=== PATIENT | female | born 1975 | race Caucasian/White ===

== ENCOUNTER 2018-09-09 16:06 | Emergency (ER) | payer SELFPAY ==
--- NOTE | 2018-09-09 16:10 | ED.ABDPAIN ---
HPI - Abdominal Pain <ATA Herrera - Last Filed: 09/09/18 22:26> General Chief Complaint: Abdominal Pain Stated Complaint: left side x7 days Time Seen by Provider: 09/09/18 16:09 Source: patient Mode of arrival: ambulatory Limitations: no limitations History of Present Illness HPI narrative: 43-year-old female healthy female that is a nonsmoker here for complaint of pain to her left flank area over the past several days. She feels that she has been having increased urinary frequency. She denies any dysuria. She denies any abnormal vaginal discharge or bleeding. Last menstrual period was approximately July 10. she denies any trauma to the left flank. increased pain with motion of the lower back. No fevers no chills. No nausea or vomiting. She also reports having generalized lower abdomen /pelvic pain over the past last several days as well. Related Data Allergies Allergy/AdvReac Type Severity Reaction Status Date / Time No Known Drug Allergies Allergy Verified 09/09/18 16:18 Review of Systems <ATA Herrera - Last Filed: 09/09/18 22:26> Constitutional Denies chills, Denies fever(s), Denies lethargy and Denies weakness Eyes Denies change in vision, Denies eye discharge, Denies irritation and Denies loss of vision ENT Ears, Nose, Mouth, and Throat: Denies change in voice, Denies neck pain and Denies sore throat Cardiovascular Denies chest pain, Denies irregular heart rhythm, Denies lightheadedness, Denies palpitations and Denies orthopnea Gastrointestinal Comments: abdominal/pelvic discomfort Genitourinary Comments: Flank pain. Musculoskeletal Denies neck pain Integumentary/Breasts Denies pruritus, Denies erythema, Denies rash and Denies wounds Neurologic Denies confusion, Denies loss of vision and Denies weakness Psychiatric Denies anxiety, Denies confusion, Denies depression, Denies homicidal ideation and Denies suicidal ideation Endocrine Denies palpitations Hematologic/Lymphatic Denies easy bruising Exam <ATA Herrera - Last Filed: 09/09/18 22:26> Initial Vital Signs Initial Vital Signs: Vital Signs Temperature 98.8 F 09/09/18 16:18 Pulse Rate 84 09/09/18 16:18 Respiratory Rate 16 09/09/18 16:18 Blood Pressure 122/83 09/09/18 16:18 Pulse Oximetry 99 09/09/18 16:18 Const General: cooperative and well developed Nutritional Appearance: well nourished Orientation: alert, awake, oriented x3 and not confused HENFL Mouth: oral mucosae normal and moist mucous membranes Eyes Conjunctivae: conjunctivae normal Sclera: sclerae normal Pupils: PERRL EOM: EOM intact bilaterally Resp Effort & Inspection: normal respiratory effort, able to speak in complete sentences, no respiratory distress and no use of accessory muscles Auscultation: clear to auscultation bilaterally, no rales, no rhonchi and no wheezes Cardio Rate: regular rate Rhythm: regular rhythm Heart Sounds: no click, no gallops, no murmurs and no rubs Back/Spine/Pelvis Thoracic/Lumbar Spine: paraspinal tenderness Skin General: no rashes or lesions noted, No jaundice and No petechiae Neuro General: alert, oriented x3, gait normal and no focal motor deficits Speech: speech normal <Chadd Cardoso DO - Last Filed: 09/10/18 07:35> Initial Vital Signs Initial Vital Signs: Vital Signs Temperature 98.8 F 09/09/18 16:18 Pulse Rate 84 09/09/18 16:18 Respiratory Rate 16 09/09/18 16:18 Blood Pressure 122/83 09/09/18 16:18 Pulse Oximetry 99 09/09/18 16:18 Course <ATA Herrera - Last Filed: 09/09/18 22:26> Orders Ordered: Discontinued Medications Sodium Chloride (Normal Saline 0.9%) 1,000 mls @ 1,000 mls/hr IV BOLUS ONE Stop: 09/09/18 17:36 Last Infusion: 09/09/18 19:17 Dose: 0 mls/hr Admin: 09/09/18 17:19 Dose: 1,000 mls/hr Vital Signs - 8 hr 09/09/18 16:18 09/09/18 18:04 09/09/18 19:41 Temperature 98.8 F 98.8 F Pulse Rate 84 84 76 Respiratory Rate 16 16 16 Blood Pressure 122/83 122/83 Blood Pressure [Right Arm] 133/91 H Pulse Oximetry 99 99 98 <Chadd Cardoso DO - Last Filed: 09/10/18 07:35> Orders Ordered: Discontinued Medications Sodium Chloride (Normal Saline 0.9%) 1,000 mls @ 1,000 mls/hr IV BOLUS ONE Stop: 09/09/18 17:36 Last Infusion: 09/09/18 19:17 Dose: 0 mls/hr Admin: 09/09/18 17:19 Dose: 1,000 mls/hr Vital Signs - 8 hr 09/09/18 16:18 09/09/18 18:04 09/09/18 19:41 Temperature 98.8 F 98.8 F Pulse Rate 84 84 76 Respiratory Rate 16 16 16 Blood Pressure 122/83 122/83 Blood Pressure [Right Arm] 133/91 H Pulse Oximetry 99 99 98 MDM - Abdominal Pain <ATA Herrera - Last Filed: 09/09/18 22:26> Lab Data Result diagrams: 09/09/18 17:05 09/09/18 17:05 Lab Results 09/09/18 09/09/18 09/09/18 Range/Units 17:05 17:05 17:45 WBC 8.7 (4.5-11.0) X10^3/uL RBC 4.28 (4.0-5.2) X10^6/uL Hgb 13.3 (12.0-16.0) g/dL Hct 39.8 (36-46) % MCV 93.0 (80-100) fL MCH 31.0 (26-34) PG MCHC 33.4 (30-36) % RDW 13.0 (11.6-14.8) % Plt Count 215 (150-400) X10^3/uL Neut % (Auto) 68.7 (50-75) % Lymph % (Auto) 22.8 L (25-40) % [place] % (Auto) 7.4 (3-14) % Eos % (Auto) 0.6 L (2-4) % Baso % (Auto) 0.5 (0-2) % Neut # (Auto) 6000 H (4847-3003) /uL Sodium 138 (137-145) mmol/L Potassium 4.0 (3.4-5.1) mmol/L Chloride 103 (98-107) mmol/L Carbon Dioxide 23 (22-32) mmol/L BUN 5 L (7-17) mg/dL Creatinine 0.60 (0.52-1.04) mg/dL Estimated GFR > 60.0 (>60) mL/min BUN/Creatinine Ratio 8.3 (6-22) Glucose 86 (70-100) mg/dL Calcium 9.0 (8.4-10.2) mg/dL Total Bilirubin 1.4 H (0.2-1.3) mg/dL AST 14 (14-36) IU/L ALT 19 (9-52) IU/L Alkaline Phosphatase 37 L (38-126) U/L Total Protein 7.0 (6.3-8.2) g/dL Albumin 4.3 (3.5-5.0) g/dL Globulin 2.7 (1.7-4.1) g/dL Albumin/Globulin Ratio 1.6 (1.0-2.8) Lipase 37 (23-300) U/L Urine RBC 0-1/hpf (0-5/HPF) Urine WBC 0-1/hpf (0-5/HPF) Ur Squamous Epith Cells 5-10 /hpf H Urine Bacteria Few (2-10) H (None) Urine Mucus 1+ H (Negative) Ur Culture Indicated? Cult not indicated Micro UA Comment Not Reportable Point of care testing: Point of Care Testing Test Results Positive Urine Dip Bedside Urine Glucose Negative Bedside Urine Bilirubin - Negative Bedside Urine Ketone ++ 40 Urine Specific [place] 1.025 Bedside Urine Occult Blood - Negative Bedside Urine pH 6.0 Bedside Urine Protein +/- 15 Bedside Urine Urobilinogen - Negative Bedside Urine Nitrite - Negative Bedside Urine Leukocytes - Negative Esterase MDM Narrative Medical decision making narrative: urinalysis was negative for urinary tract infection. Urinalysis was positive for . She is 4 para 1. CBC and Chem panel were obtained were unremarkable. Lipase was normal. pain into the left flank presents as a paraspinal tenderness to the lumbar region. Suspect that her generalized discomfort to the lower abdomen and pelvic region may be due to ligament pain secondary to the . Will hold on imaging as of this time. she is referred to [facility] for further evaluation and treatment. use [id number] Tylenol as needed for any discomfort. For any worsening symptoms return to the emergency room. <Chadd Cardoso DO - Last Filed: 09/10/18 07:35> Lab Data Lab Results 09/09/18 09/09/18 09/09/18 Range/Units 17:05 17:05 17:45 WBC 8.7 (4.5-11.0) X10^3/uL RBC 4.28 (4.0-5.2) X10^6/uL Hgb 13.3 (12.0-16.0) g/dL Hct 39.8 (36-46) % MCV 93.0 (80-100) fL MCH 31.0 (26-34) PG MCHC 33.4 (30-36) % RDW 13.0 (11.6-14.8) % Plt Count 215 (150-400) X10^3/uL Neut % (Auto) 68.7 (50-75) % Lymph % (Auto) 22.8 L (25-40) % Archer % (Auto) 7.4 (3-14) % Eos % (Auto) 0.6 L (2-4) % Baso % (Auto) 0.5 (0-2) % Neut # (Auto) 6000 H (2416-2081) /uL Sodium 138 (137-145) mmol/L Potassium 4.0 (3.4-5.1) mmol/L Chloride 103 (98-107) mmol/L Carbon Dioxide 23 (22-32) mmol/L BUN 5 L (7-17) mg/dL Creatinine 0.60 (0.52-1.04) mg/dL Estimated GFR > 60.0 (>60) mL/min BUN/Creatinine Ratio 8.3 (6-22) Glucose 86 (70-100) mg/dL Calcium 9.0 (8.4-10.2) mg/dL Total Bilirubin 1.4 H (0.2-1.3) mg/dL AST 14 (14-36) IU/L ALT 19 (9-52) IU/L Alkaline Phosphatase 37 L (38-126) U/L Total Protein 7.0 (6.3-8.2) g/dL Albumin 4.3 (3.5-5.0) g/dL Globulin 2.7 (1.7-4.1) g/dL Albumin/Globulin Ratio 1.6 (1.0-2.8) Lipase 37 (23-300) U/L Urine RBC 0-1/hpf (0-5/HPF) Urine WBC 0-1/hpf (0-5/HPF) Ur Squamous Epith Cells 5-10 /hpf H Urine Bacteria Few (2-10) H (None) Urine Mucus 1+ H (Negative) Ur Culture Indicated? Cult not indicated Micro UA Comment Not Reportable Point of care testing: Point of Care Testing Test Results Positive Urine Dip Bedside Urine Glucose Negative Bedside Urine Bilirubin - Negative Bedside Urine Ketone ++ 40 Urine Specific [place] 1.025 Bedside Urine Occult Blood - Negative Bedside Urine pH 6.0 Bedside Urine Protein +/- 15 Bedside Urine Urobilinogen - Negative Bedside Urine Nitrite - Negative Bedside Urine Leukocytes - Negative Esterase Discharge Plan Departure Patient Disposition: Home Clinical Impression: Back pain Discharge Date/Time: 09/09/18 20:01 Interventions: ED Discharge Assessment Last Done: 09/09/18 19:59 Instructions: Medications and , DI for Abdominal Pain -- Early Activity Restrictions/Additional Instructions: laboratory results today were unremarkable. Urinalysis was negative for urinary tract infection. Urinalysis does indicate positive for . Pain into her left back area presents as muscle skeletal pain. Gentle range of motion to the painful areas to help keep muscles loose. Use [id number] Tylenol as needed for any discomfort. Rest area. Follow up with OBGYN call the number at number provided to schedule follow-up appointment he in the next few days. generalized pelvic pain presents as ligament pain secondary to the . Again use [id number] Tylenol as needed for any discomfort. For any worsening symptoms return emergency room. Referrals: Mely Calloway MD [Physician] - <Chadd Cardoso DO - Last Filed: 09/10/18 07:35> [facility]: I was immediately available in the department for consultation. Documentation has been reviewed. I agree with assessment and plan.
[2018-09-09 16:18] VITALS: BP 122/83; PULSE 84; RESP 16; TEMP 37.1; O2SAT 99; BMI 22.7
[2018-09-09 17:13] LABS: Add Manual Diff / Slide Review NO; Basophils Percent Auto 0.5 % (0-2); Eosinophils Percent Auto 0.6 % (2-4); Hematocrit 39.8 % (36-46); Hemoglobin 13.3 g/dL (12.0-16.0); Lymphocytes Percent Auto 22.8 % (25-40); Mean Corpuscular HGB Conc 33.4 % (30-36); Monocytes Percent Auto 7.4 % (3-14); Neutrophils Absolute Auto 6000 /uL (3000-5900); Neutrophils Percent Auto 68.7 % (50-75); Platelet Count 215 X10^3/uL (150-400); Red Blood Cell Count 4.28 X10^6/uL (4.0-5.2); White Blood Cell Count 8.7 X10^3/uL (4.5-11.0)
[2018-09-09] MEDS: SODIUM CHLORIDE 0.9% 1,000 ML 1000 ML IV (17:19)
[2018-09-09 17:25] LABS: Alanine Aminotransferase 19 IU/L (9-52); Albumin 4.3 g/dL (3.5-5.0); Albumin Globulin Ratio 1.6 (1.0-2.8); Alkaline Phosphatase 37 U/L (38-126); Aspartate Aminotransferase 14 IU/L (14-36); BUN Creatinine Ratio 8.3 (6-22); Bilirubin Total 1.4 mg/dL (0.2-1.3); Blood Urea Nitrogen 5 mg/dL (7-17); Carbon Dioxide 23 mmol/L (22-32); Chloride 103 mmol/L (98-107); Estimated Glomerular Filt Rate > 60.0 mL/min (>60); Globulin 2.7 g/dL (1.7-4.1); Glucose 86 mg/dL (70-100); HEMOLYSIS < 15 (0-50); Lipase 37 U/L (23-300); Sodium 138 mmol/L (137-145)
[2018-09-09 18:04] VITALS: BP 122/83; PULSE 84; RESP 16; TEMP 37.1; O2SAT 99; BMI 22.7
[2018-09-09 18:09] LABS: Bacteria Urine Few (2-10); Culture Indicated Urine Cult Not Indicated; RBC Urine 0-1/HPF (0-5/HPF); Squamous Epithelial Cell Urine 5-10 /HPF; WBC Urine 0-1/HPF (0-5/HPF)
[2018-09-09 18:15] LABS: Mucus Urine 1+ (Negative)
[2018-09-09 19:41] VITALS: BP 133/91; PULSE 76; RESP 16; O2SAT 98
== END 2018-09-09 20:01 | disposition home or self-care (01) ==
PROVIDERS: Emergency Provider Nurse Practitioner Family
DX: M54.9 Dorsalgia, unspecified (principal)
CPT/HCPCS: 80053; 81003; 81015; 81025; 83690; 85025; 96360; 96361; 99283; 99284